=== PATIENT | female | born 2000 | race Two or more races ===

== ENCOUNTER 2023-01-27 21:39 | Emergency (ER) | payer MEDICAID, OTHER ==
[~2023-01-27] VITALS: Ht 165.1 cm; Wt 69.0 kg
[2023-01-28] MEDS ORDERED: ACET-1158 PO (01:31)
[2023-01-28] MEDS ORDERED: AMOX-277 PO (01:31)
[2023-01-28] MEDS ORDERED: ACETAMINOPHEN 325 MG TAB PO ONE (01:45)
[2023-01-28 02:50] VITALS: BP 129/78
== END 2023-01-28 02:50 | disposition home or self-care (01) ==
LOC: EDBD 21:39 → ER 21:41
DX: S02.2XXA Fracture of nasal bones, initial encounter for closed fracture (principal); S16.1XXA Strain of muscle, fascia and tendon at neck level, initial encounter; S00.83XA Contusion of other part of head, initial encounter; Y04.2XXA Assault by strike against or bumped into by another person, initial encounter; Y93.89 Activity, other specified; Y92.89 Other specified places as the place of occurrence of the external cause; Y99.8 Other external cause status
CPT/HCPCS: 70450; 70486; 72125

== ENCOUNTER → 2023-07-09 | Outpatient (CLI) | payer MEDICAID ==
[~2023-07-09] MED LIST: ACET500T58 PO; AMOX875T4 PO
[2023-07-09 10:08] LABS: Basophils # (auto) 0 10 ^3/uL (0-0.2); Basophils % (auto) 0.7 % (0.0-2.0); Eosinophils # (auto) 0.2 10 ^3/uL (0-0.8); Eosinophils % (auto) 3.4 % (0.0-7.0); Hematocrit 38.1 % (36.0-46.0); Hemoglobin 12.8 g/dL (12.2-16.2); Lymphocytes # (auto) 1.3 10 ^3/uL (0.4-5.4); Lymphocytes % (auto) 23.4 % (10.0-50.0); Mean Corpuscular Hemoglobin 30.4 pg (28.0-32.0); Mean Corpuscular Hgb Conc. 33.6 g/dL (32.0-36.0); Mean Corpuscular Volume 90.5 fL (80.0-100.0); Monocytes # (auto) 0.3 10 ^3/uL (0-1.3); Monocytes % (auto) 6.2 % (0.0-12.0); Neutrophils # (auto) 3.6 10 ^3/uL (1.6-8.6); Neutrophils % (auto) 66.3 % (37.0-80.0); Nucleated Red Blood Cells % 0.1 %; Red Blood Cells 4.21 10^6/uL (4.0-5.20); Red Cell Distribution Width 13.5 % (11.8-14.3); White Blood Cell 5.4 10^3/uL (4.4-10.8)
[2023-07-09 11:32] LABS: Albumin 3.6 g/dL (3.4-5.0); Calcium 8.8 mg/dL (8.7-10.4)
[2023-07-09 11:37] LABS: BUN/Creatinine Ratio 13.9 (10.0-20.0); Bilirubin, Total 0.4 mg/dL (0.2-1.0)
[2023-07-09 11:41] LABS: Ferritin 10.5 ng/mL (10-322)
[2023-07-09 11:42] LABS: % Iron Saturation 12.7 % (15-50); Folate (Folic Acid) 19.18 ng/mL (5.38-24); Follicle Stimulating Hormone 15.35 IU/L (SEE BELOW); Leuteinizing Hormone 30.8 IU/L
[2023-07-09 17:36] LABS: INR 0.97 (0.9-1.15); Partial Thromboplastin Time 28.2 SEC (24.5-34.5); Prothrombin Time 10.2 sec (9.3-11.8)
[2023-07-10 07:07] LABS: RPR Non Reactive (Non Reactive)
[2023-07-10 10:06] LABS: Treponema Pallidum Ab LC Non Reactive (Non Reactive)
== END | disposition home or self-care (01) ==
LOC: LAB 09:34
PROVIDERS: ATTEND Obstetrics & Gynecology
DX: Z01.419 Encounter for gynecological examination (general) (routine) without abnormal findings (principal)
CPT/HCPCS: 36415; 80053; 80061; 82306; 82607; 82670; 82728; 82746; 83001; 83002; 83036; 83540; 83550; 84112; 84144; 84403; 84443; 85025; 85384; 85610; 85730; 86592; 86703